=== PATIENT | female | born 1975 | race Caucasian/White ===

== ENCOUNTER → 2017-10-20 | Outpatient (CLI) | payer OTHER ==
--- NOTE | 2017-10-21 10:07 | KCIC ---
Bilateral digital screening mammograms: Reason for examination: Routine screening. Comparison is made to previous study dated 07/03/2015. Interpretation was made with the benefit of CAD. The skin and nipples show no abnormalities. No abnormal axillary lymph nodes are seen. The breast parenchyma shows scattered fibroglandular density. (Breast density: Category B.) There appears to be a new 5 mm nodular density seen just above the nipple line in the central right breast on oblique view probably located at the 9:00 B position. Further evaluation with coned compression views and ultrasound is recommended. There are no other dominant masses, suspicious calcifications or architectural distortions. Impression: New 5 mm nodular density in the right breast probably at the 9:00 B position. Recommend further evaluation with coned compression views and ultrasound. BI-RADS category 0: Incomplete. Additional imaging is recommended. "Our facility is accredited by the [employer]ammography [employer]." This patient's information has been entered into a reminder system for the patient to be notified with the results of her examination and a target date for the next mammogram. Electronically signed by: Nallely Harper MD (10/21/2017 10:04 AM) [id number]
== END | disposition home or self-care (01) ==
LOC: KCIC MAMMO 16:05
PROVIDERS: ATTEND Family Medicine
DX: Z12.31 Encounter for screening mammogram for malignant neoplasm of breast (principal)
CPT/HCPCS: G0202; 77067

== ENCOUNTER → 2017-10-29 | Outpatient (CLI) | payer OTHER ==
--- NOTE | 2017-10-29 14:10 | KCIC ---
Right breast diagnostic digital mammograms: Reason for examination: Parenchymal density on screening mammogram. Comparison is made to mammographic examination dated 10/20/2017. Coned compression views were obtained in CC and oblique projections. A small parenchymal density appears to persist at the 9:00 B position approximately 5 cm from the nipple and measures approximately 5 mm in size. Further evaluation with ultrasound will follow. IMPRESSION: Small nodule at the 9:00 position of the right breast 5 cm from the nipple. Ultrasound to follow. BI-RADS Category 0: Incomplete. Ultrasound to follow. Right breast ultrasound: Ultrasound examination of the right breast was performed in the area of mammographic concern and at the right axilla. In the 9:00 position 5 cm from the nipple and corresponding to the area of mammographic concern, there is a small 5 x 3 mm hypoechoic nodule. Small malignancy cannot be excluded and ultrasound-guided biopsy is recommended. No abnormal appearing lymph nodes are seen in the axilla. IMPRESSION: 5 mm nodule at the 9:00 position 5 cm from the nipple. Small malignancy cannot be excluded. Recommend ultrasound-guided biopsy. BI-RADS Category 4: Suspicious. The patient was informed about these findings at the time of the examination and was instructed to follow-up with Dr. Easton and Dr Easton's office was notified of these findings with message left on the answering machine on 10/29/2017 at 14:00. "Our facility is accredited by the [employer]ammography [employer]." Electronically signed by: Nallely Harper MD (10/29/2017 2:06 PM) [id number]
== END | disposition home or self-care (01) ==
LOC: KCIC MAMMO 12:57
PROVIDERS: ATTEND Family Medicine
DX: N63.10 Unspecified lump in the right breast, unspecified quadrant (principal)
CPT/HCPCS: 76641; G0206; 77065